=== PATIENT | male | born 1945 | race Caucasian/White ===

== ENCOUNTER 2023-12-07 02:26 | Emergency (ER) | payer MEDICARE, MEDICAID ==
[~2023-12-07] VITALS: Ht 165.1 cm; Wt 109.1 kg
[~2023-12-07 02:26] MED LIST: BISM-142 PO; HYDR-3972 PO
[2023-12-07 02:31] VITALS: TEMP 97.8
[2023-12-07] MEDS: LidoCAINE 2% Topical Jelly 11mL syringe (UROJET) TOP ONE (03:58)
[2023-12-07 04:13] LABS: BILIRUBIN,URINE SMALL (Neg); CLARITY,URINE CLOUDY (Clear); COLOR,URINE BROWN (Yellow); GLUCOSE, URINE 100 mg/dl (Neg); KETONES,URINE TRACE mg/dl (Neg); LEUKOCYTE ESTERASE ,URINE TRACE (Neg); OCCULT BLOOD,URINE LARGE (Neg); PH,URINE 6.5 (4.8-8.0); PROTEIN,URINE >=300 mg/dl (Neg)
[2023-12-07 04:16] LABS: NITRITES, URINE NEGATIVE (Neg); UA COLLECTION TYPE FOLEY CATH
[2023-12-07 04:19] LABS: MUCUS STRANDS NONE SEEN /LPF (Neg); RBC,URINE TNTC /HPF (0-2); SQUAMOUS EPITHELIAL CELL,UR FEW /LPF (FEW)
[2023-12-07 04:24] LABS: BACTERIA,URINE FEW /HPF (Neg)
[2023-12-07 04:25] LABS: AMORPHOUS URATES 3+
[2023-12-07] MEDS ORDERED: CEPH-585 PO (04:38)
[2023-12-07 05:00] VITALS: BP 125/69; PULSE 66; RESP 15; O2SAT 93
== END 2023-12-07 05:43 | disposition home or self-care (01) ==
LOC: ER 02:26
DX: R33.8 Other retention of urine (principal); I10 Essential (primary) hypertension; Z79.899 Other long term (current) drug therapy; Z90.49 Acquired absence of other specified parts of digestive tract; Z98.890 Other specified postprocedural states
CPT/HCPCS: 51702; 81001; 87088; 99284; A4358; C1758

== ENCOUNTER 2023-12-09 02:29 | Emergency (ER) | payer MEDICARE, MEDICAID ==
[~2023-12-09] VITALS: Ht 167.6 cm; Wt 109.1 kg
[~2023-12-09 02:29] MED LIST changes: +CEPH-585 PO
[2023-12-09 02:40] VITALS: TEMP 98.1
[2023-12-09 05:06] VITALS: BP 125/56; PULSE 63; RESP 18; O2SAT 95
== END 2023-12-09 05:09 | disposition home or self-care (01) ==
LOC: ER 02:30
DX: T83.098A Other mechanical complication of other urinary catheter, initial encounter (principal); R30.9 Painful micturition, unspecified; I10 Essential (primary) hypertension; Z90.49 Acquired absence of other specified parts of digestive tract; Z79.2 Long term (current) use of antibiotics; Z79.899 Other long term (current) drug therapy
CPT/HCPCS: 99284

== ENCOUNTER 2023-12-09 10:00 | Emergency (ER) | payer MEDICARE, MEDICAID ==
[~2023-12-09] VITALS: Ht 167.6 cm; Wt 109.1 kg
[2023-12-09 12:38] VITALS: BP 178/91; PULSE 72; RESP 16; TEMP 97.8; O2SAT 95
== END 2023-12-09 12:55 | disposition home or self-care (01) ==
LOC: ER 10:01
DX: N32.89 Other specified disorders of bladder (principal); R33.8 Other retention of urine; I10 Essential (primary) hypertension; Z90.49 Acquired absence of other specified parts of digestive tract; Z98.890 Other specified postprocedural states; Z79.2 Long term (current) use of antibiotics
CPT/HCPCS: 99281; J7030

== ENCOUNTER 2023-12-13 16:11 | Emergency (ER) | payer MEDICARE, MEDICAID ==
[~2023-12-13] VITALS: Ht 167.6 cm; Wt 107.5 kg
[2023-12-13 19:16] VITALS: BP 102/70; PULSE 70; RESP 16; TEMP 98.2; O2SAT 96
== END 2023-12-13 19:17 | disposition home or self-care (01) ==
LOC: ER 16:12
DX: R33.9 Retention of urine, unspecified (principal); I10 Essential (primary) hypertension; Z79.2 Long term (current) use of antibiotics; Z90.49 Acquired absence of other specified parts of digestive tract; Z98.890 Other specified postprocedural states
CPT/HCPCS: 99281

== ENCOUNTER 2023-12-20 00:12 | Emergency (ER) | payer MEDICARE, MEDICAID ==
[~2023-12-20] VITALS: Ht 167.6 cm; Wt 109.1 kg
[~2023-12-20 00:12] MED LIST changes: -CEPH-585 PO
[2023-12-20 01:16] VITALS: TEMP 98.5
[2023-12-20 01:32] VITALS: BP 140/73; PULSE 61; RESP 14; O2SAT 98
== END 2023-12-20 01:53 | disposition home or self-care (01) ==
LOC: ER 00:13
DX: R33.9 Retention of urine, unspecified (principal); I10 Essential (primary) hypertension
CPT/HCPCS: 51702; 99284; A4314

== ENCOUNTER 2024-09-03 09:00 | Emergency (ER) | payer MEDICARE, MEDICAID ==
[~2024-09-03] VITALS: Ht 167.6 cm; Wt 105.0 kg
--- NOTE | 2024-09-03 09:22 | Physician Documentation ---
History of Present Illness ~ Chief Complaint: Hip pain Stated Complaint: L LEG PAIN Time Seen by MD: 09:05 Primary Medical Doctor: Adan KIRK 79-year-old male presenting with left-sided hip pain for the past 3-4 days. Patient states that he has not sure what he did to it. He did step over something and feels like he may have strained his hip but is unsure. He denies any other trauma or falls. He states the pain radiates from his hip down his leg. Denies any numbness, tingling. Patient has a history of prostate cancer in his currently getting radiation. Any attempted movement of the left hip causes the pain to worsen. Medication Reconciliation Allergies: Coded Allergies: No Known Allergies (Unverified , 09/03/24) Scheduled PRN Bismuth Subsalicylate (Stomach Relief), 30 ML PO PRN PRN for DYSPEPSIA , (Reported) Hydrocodone Bit/Acetaminophen (Hydrocodon-Acetaminophn 10-325 tablet), 1 TAB PO Q4H PRN for moderate or severe pain, (Reported) Past Medical History Past Medical History: Hypertension, Pneumonia, Pancreatitis, Hernia, MRSA Abscess Past Surgical History: cholecystectomy, other Other Past Surgical History: Hernia repair Alcohol Use: None Lives with: Other Lives In: Home Occupation: retired Review of Systems All Other Systems at this time: Reviewed and Negative Physical Exam Vital Signs: Temperature: 99.0, Source: Oral, Heart Rate: 74, Respiratory Rate: 12, BP: 137/57, Pulse Oximetry: 96, Weight: 105.000 Oxygen Flow Rate: 0 General Appearance I have reviewed the triage vitals. CONST: Well developed and well nourished. In no acute distress HENT: Head Atraumatic EYES: Pupils are equal, round and reactive to light. Normal conjunctiva NECK: Normal range of motion. Supple. CARDIO: Normal rate and regular rhythm. No murmurs, rubs, or gallops. S1, S2. PULM/CHEST: No respiratory distress. Lungs clear to auscultation. No wheeze ABD: Soft and nontender. Nondistended. Bowel sounds normal. No guarding. : Exam deferred MSK: No edema. No deformity. Left hip is normal in appearance. There is tenderness to palpation over the anterior hip as well as the left greater trochanter. Attempted range of motion of the is causing severe pain and range of motion is significantly limited. NEURO: Alert and oriented to person, place and time. Moving all extremities SKIN: Warm and dry. PSYCH: Normal mood and affect. Good eye contact. Progress Results/Orders Results/Orders Orders - LION RODRIGUEZ MD Hip Unilateral 2 Views (09/03/24 09:47) Ct Pelvis (09/03/24 13:04) Page Hospitalist (09/03/24 14:15) Fill Out Med Reconciliation (09/03/24 14:15) Completed Orders - LION RODRIGUEZ MD Hip Unilateral 2 Views (09/03/24 09:47) Hydrocodone/Apap 5/325mg Tab ([place] 5/32 (09/03/24 09:20) Cbc/Diff (09/03/24 09:22) BMP (09/03/24 09:22) Man Diff (09/03/24 10:04) Ct Pelvis (09/03/24 13:04) Oxycodone Immed Release Tablet (Oxy Ir T (09/03/24 11:00) Normal Saline 500ml Iv Soln (Sodium Chlo (09/03/24 11:05) Ondansetron Inj. (Zofran 4mg/2ml Vial) (09/03/24 12:10) Iohexol 300mg/Ml 100ml Inj. (Omnipaque-3 (09/03/24 12:47) Medications Received in ER Medications (Trade) Dose Ordered Sig/Peter Route PRN Reason Start Time Stop Time Status Last Admin Dose Admin ([place] 5/325mg tablet) 2 tab ONCE ONCE PO 09/03/24 09:20 09/03/24 09:21 DC 09/03/24 09:29 2 TAB (OXY IR tablet) 10 mg ONCE ONCE PO 09/03/24 11:00 09/03/24 11:01 DC 09/03/24 11:15 10 MG Sodium Chloride 500 ml @ 500 mls/hr ONCE ONCE IV 09/03/24 11:05 09/03/24 12:04 DC 09/03/24 11:14 500 MLS/HR Vital Signs 09/03/24 09/03/24 09/03/24 09/03/24 09:05 09:20 09:29 11:02 Temp 99.0 99.0 Pulse 74 73 Resp 12 18 18 18 B/P (MAP) 137/57 137/68 (91) Pulse Ox 96 98 O2 Flow Rate 0 0 09/03/24 09/03/24 09/03/24 09/03/24 11:15 11:54 11:55 13:14 Temp 98.7 98.7 Pulse 73 68 Resp 18 18 16 18 B/P (MAP) 125/66 (85) 131/66 (87) Pulse Ox 97 95 O2 Flow Rate 0 0 Laboratory Tests Test 09/03/24 10:04 White Blood Count 4.0 L Red Blood Count 3.83 L Hemoglobin 11.4 L Hematocrit 33.3 L Mean Corpuscular Volume 87.0 Mean Corpuscular Hemoglobin 29.9 Mean Corpuscular Hemoglobin Concent 34.4 Red Cell Distribution Width 13.7 Platelet Count 89 L Mean Platelet Volume 8.1 Neutrophils (%) (Auto) 74.9 Lymphocytes (%) (Auto) 4.9 L Monocytes (%) (Auto) 18.4 H Eosinophils (%) (Auto) 1.6 Basophils (%) (Auto) 0.2 Neutrophils # (Auto) 3.0 Lymphocytes # (Auto) 0.2 L Monocytes # (Auto) 0.7 Eosinophils # (Auto) 0.1 Basophils # (Auto) 0.0 CBC Comment Differential Total Cells Counted 100 Neutrophils % (Manual) 79.0 H Band Neutrophils % 1.0 Lymphocytes % (Manual) 5.0 L Monocytes % (Manual) 12.0 Eosinophils % (Manual) 3.0 Platelet Estimate Decreased Red Blood Cell Morphology Normal Basophilic Stippling Sodium Level 137 Potassium Level 3.9 Chloride Level 102 Carbon Dioxide Level 26.6 Anion Gap 8 Blood Urea Nitrogen 15 Creatinine 0.98 Estimated GFR/1.73 m2 73 BUN/Creatinine Ratio 15.3 Glucose Level 142 H Calcium Level 8.9 Albumin 3.4 Chemistry Comments EKG/XRAY/CT/US/VASC/MRI CT : Impression CLINICAL INDICATION: HIP PAIN,LEFT TECHNIQUE: 1 radiographic views of the pelvis and 2 views of the left hip were obtained. Comparison: None FINDINGS/IMPRESSION: There is no evidence of acute fracture or dislocation. 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 Degenerative changes in the bilateral sacroiliac joints and pubic symphysis. There is no radiopaque foreign body. Medical Decision Making Additional Comment 79-year-old male presenting with acute onset left hip pain. Usual x-ray of the hip was unremarkable. Given his history of prostate cancer and the potential for metastatic lesions I did perform a CT with contrast of the pelvis. CT did indicate a lytic lesion in the posterior acetabulum. This potentially is the cause of his severe hip pain. The patient was in a significant amount of pain and required both [place] and oxycodone for pain control. Patient could not bear much weight on the left extremity due to the pain and as a result can not ambulate. After the medication we once again attempted to have the patient walk and he was able to ambulate and bear weight although with assistance. I informed the patient of the CT findings and advised him that there is a high possibility that he has a metastatic lesion from his prostate to his hip. The patient gets radiation therapy every day per his oncologist and has missed a couple of days. I advised him that he needs to inform his oncologist of this and to continue with his radiation. He has an appointment scheduled for tomorrow and advised him that he needs to keep this appointment. He will prescribe the patient some Percocet for pain control. He was advised to return to ED with any acutely worsening symptoms. Departure Disposition: HOME / SELF CARE / HOMELESS Impression: Primary Impression: Lytic bone lesion of hip Additional Impressions: Hx of malignant neoplasm of prostate Left hip pain Inability to ambulate due to hip Condition: Improved Referrals: NO PRIMARY CARE PROVIDER (PCP) Prescriptions Oxycodone HCl/Acetaminophen (Percocet 10-325 mg Tablet) 10 Mg-325 Mg Tablet 1 TAB PO QID PRN PRN for pain for 5 Days, #20 TAB 0 Refills Prov: LION RODRIGUEZ MD 09/03/24 Signature Scribe Signature: 1 Attestation: 1 LION RODRIGUEZ MD Sep 03, 2024 09:22
[2024-09-03] MEDS: HYDROcodone/acetaminophen 5mg/325mg tablet PO ONE (09:29)
--- NOTE | 2024-09-03 10:01 | RADIOLOGY REPORT ---
CLINICAL INDICATION: HIP PAIN,LEFT TECHNIQUE: 1 radiographic views of the pelvis and 2 views of the left hip were obtained. Comparison: None FINDINGS/IMPRESSION: There is no evidence of acute fracture or dislocation. 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 Degenerative changes in the bilater al sacroiliac joints and pubic symphysis. There is no radiopaque foreign body.
[2024-09-03 10:18] LABS: BASOPHILS % (AUTO) 0.2 % (0-1); EOSINOPHILS # (AUTO) 0.1 X10'3 (0-0.9); EOSINOPHILS % (AUTO) 1.6 % (0-6); HEMATOCRIT 33.3 % (42.0-52.0); HEMOGLOBIN 11.4 g/dl (14.0-17.9); LYMPHOCYTES # (AUTO) 0.2 X10'3 (1.1-4.8); LYMPHOCYTES % (AUTO) 4.9 % (21-51); MEAN CORPUSCULAR HEMOGLOBIN 29.9 PG (27.0-31.0); MEAN CORPUSCULAR HGB CONC 34.4 g/dL (33.0-36.5); MEAN PLATELET VOLUME 8.1 FL (7.4-10.4); MONOCYTES # (AUTO) 0.7 X10'3 (0-0.9); MONOCYTES % (AUTO) 18.4 % (2-12); NEUTROPHILS % (AUTO) 74.9 % (42-75); PLATELET COUNT 89 X10'3 (140-440); RED BLOOD COUNT 3.83 X10'6 (4.70-6.10); RED CELL DISTRIBUTION WIDTH 13.7 % (11.5-14.5)
[2024-09-03 10:27] LABS: ALBUMIN 3.4 G/DL (3.4-5.0); ANION GAP 8 (8-16); BLOOD UREA NITROGEN 15 MG/DL (7-18); BUN/CREATININE RATIO 15.3 (10.0-20.0); CALCIUM 8.9 MG/DL (8.5-10.1); CHLORIDE 102 MMOL/L (99-107); CREATININE 0.98 MG/DL (0.60-1.10); GLUCOSE 142 MG/DL (70-104); POTASSIUM 3.9 MMOL/L (3.5-5.1); SODIUM 137 MMOL/L (135-145); TOTAL CARBON DIOXIDE 26.6 MMOL/L (24-32); eCRCL 53 ML/MIN; eGFR 73 ML/MIN
[2024-09-03 10:40] LABS: TOTAL CELLS COUNTED 100
[2024-09-03 10:41] LABS: PLATELET ESTIMATE DECREASED
[2024-09-03] MEDS: normal saline 500ml IV soln 500 ML IV ONE (11:14)
[2024-09-03] MEDS: oxyCODONE IR 5mg (immed. release) tablet PO ONE (11:15)
[2024-09-03] MEDS: ondansetron/PF 4mg/2ml inj IV ONE (12:10)
[2024-09-03] MEDS ORDERED: iohexol 300mg/ml 100ml inj. ONE (12:47)
--- NOTE | 2024-09-03 14:03 | RADIOLOGY REPORT ---
Indication: let hip area pain- pt w/ prostate CA- r/o mets Technique: CT axial images of the abdomen and pelvis are obtained with intravenous contrast. Coronal and sagittal reformats were obtained. Radiation Dose Information: CTDI volume is 35.1 mGy. Dose-length product is 1126 mGy*cm Comparison: None FINDINGS: Aortic atherosclerotic disease. Bladder partially distended. Prostate brachytherapy seeds. No free p elvic fluid. No inguinal lymphadenopathy. Moderate volume stool within the imaged portion of the larg e bowel. Normal appendix. There is a hyperdense structure in the pelvis between the prostate and rectum measuring 1.1 x 1.9 x 3 .0 cm There is moderate bilateral sacroiliac degenerative joint disease, [id number]. Mild-to-m oderate degenerate changes bilateral hips. Moderate to severe degenerative disc disease at L4-5 with vacuum disc phenomena. Moderate lumbar facet hypertrophic changes at L4-5 and L5-S1. Posterior left acetabular 9 mm sclerotic lesion. IMPRESSION: 1. 9 mm sclerotic lesion within the posterior left acetabulum, possibly osteoblastic metastases with are considerations including bone island, bone infarct. Recommend bone scan and MRI of the pelvis wi th and without contrast to evaluate. 2. Unknown hyperdense/ calcified structure in the pelvis between the prostate and rectum measuring 1. 1 x 1.9 x 3.0 cm. Correlate with patient's clinical / procedural history to exclude any type of forei gn body. 3. Other findings as described.
[2024-09-03] MEDS ORDERED: OXYC-150 PO (16:02)
[2024-09-03 17:29] VITALS: BP 135/79; PULSE 76; RESP 18; TEMP 98.7; O2SAT 99
== END 2024-09-03 17:35 | disposition home or self-care (01) ==
LOC: ER 09:01
DX: M89.9 Disorder of bone, unspecified (principal); I10 Essential (primary) hypertension; Z85.46 Personal history of malignant neoplasm of prostate; Z90.49 Acquired absence of other specified parts of digestive tract; Z98.890 Other specified postprocedural states
CPT/HCPCS: 72193; 73502; 80048; 85025; 99285; J7040; Q9967; 85007